=== PATIENT | male | born 1990 | race Caucasian/White ===

== ENCOUNTER 2022-12-01 11:13 | Emergency (ER) | payer OTHER ==
[~2022-12-01] VITALS: Ht 172.7 cm; Wt 71.7 kg
[2022-12-01 11:15] VITALS: BP 112/64; PULSE 72; RESP 18; TEMP 97.9; O2SAT 97
--- NOTE | 2022-12-01 11:20 | NUR ---
HAMIDA HOWELL TO THE LOBBY/ BLS
--- NOTE | 2022-12-01 11:36 | NUR ---
PA EVALUATING PT.
[2022-12-01] MEDS ORDERED: KETOROLAC 30 MG/ML VIAL IM ONE (11:50)
[2022-12-01] MEDS ORDERED: KETOROLAC 30 MG/ML VIAL ONE (11:57)
[2022-12-01] MEDS ORDERED: diazePAM 5 MG TAB PO ONE (12:00)
--- NOTE | 2022-12-01 12:01 | NUR ---
PT CURRENTLY BEING MEDICATED. PT BEING TAKEN OFF UNIT TO X-RAY BY W/C ESCORTED BY VARNISH FILTERER.
--- NOTE | 2022-12-01 12:02 | NUR ---
pt taken to xray via w/c
[2022-12-01] MEDS ORDERED: HYDROcodone/APAP 5/325 MG 1 TAB TAB PO ONE (12:45)
[2022-12-01] MEDS ORDERED: LID5T TP (12:46)
[2022-12-01] MEDS ORDERED: NAPR-54 PO (12:46)
[2022-12-01] MEDS ORDERED: HYDR-5191 PO (12:46)
[2022-12-01] MEDS ORDERED: CYCL-711 PO (12:46)
--- NOTE | 2022-12-01 13:13 | NUR ---
The patient's care was reviewed and supervised by MAVERICK WARREN RN.
--- NOTE | 2022-12-01 13:14 | NUR ---
PAIN PERSIST . ADDITIONAL PAIN MEDS GIVEN, NORCO, PER OK TO DC PT AFTER MEDICATED PAIN SCORE 9/10
--- NOTE | 2022-12-01 13:16 | NUR ---
Patient discharged with v/s stable. Written and verbal after care instructions given and explained. Patient alert, oriented and verbalized understanding of instructions. Ambulatory with to home. All questions addressed prior to discharge. ID band removed. Patient advised to follow up with PMD. Rx of NORCO, NAPROSYN, LIDOCAINE PATCH given. Patient educated on indication of medication including possible reaction and side effects. Opportunity to ask questions provided and answered.
== END 2022-12-01 13:16 | disposition home or self-care (01) ==
LOC: MED 11:13
DX: S39.012A Strain of muscle, fascia and tendon of lower back, initial encounter (principal); W11.XXXA Fall on and from ladder, initial encounter; Y93.89 Activity, other specified; Y92.89 Other specified places as the place of occurrence of the external cause; Y99.0 Civilian activity done for income or pay
CPT/HCPCS: 72100; 96372; 99283; J1885